=== PATIENT | male | born 1980 | race Two or more races ===

== ENCOUNTER 2018-03-22 06:04 | Emergency (ER) | payer BC, MEDICAID ==
[~2018-03-22] VITALS: Ht 170.2 cm; Wt 65.0 kg
[2018-03-22 06:23] VITALS: BP 104/47
== END 2018-03-22 07:13 | disposition home or self-care (01) ==
LOC: ED 07:06
DX: F33.3 Major depressive disorder, recurrent, severe with psychotic symptoms (principal); Z21 Asymptomatic human immunodeficiency virus [HIV] infection status
CPT/HCPCS: 99284

== ENCOUNTER 2020-04-10 09:47 | Inpatient (IN) | payer MEDICAID, OTHER ==
[~2020-04-10] VITALS: Ht 177.8 cm; Wt 87.9 kg
[2020-04-10] MEDS ORDERED: LORazepam 2 MG/ML, 1ML ONE ×2 (09:56→11:06)
[2020-04-10] MEDS ORDERED: NALOXONE 0.4 MG/ML, 1ML ONE (09:58)
[2020-04-10] MEDS ORDERED: SODIUM CHLORIDE 0.9% 1,000 ML IV ONE (10:00)
[2020-04-10] MEDS ORDERED: NALOXONE 1 MG/ML, 2ML IVPush ONE (10:00)
[2020-04-10 10:10] LABS: MEAN CORPUSCULAR HEMOGLOBIN 30.4 pg (27.5-34.5); MEAN CORPUSCULAR HGB CONC 31.9 g/dL (33.2-36.2); MEAN PLATELET VOLUME 8.3 fL (7.4-10.4); PLATELET COUNT 326 x10^3/uL (130-400); RED CELL DISTRIBUTION WIDTH 14.9 % (9.4-14.8)
[2020-04-10 10:29] LABS: AMPHETAMINE SCREEN, URINE Negative (Negative); BARBITURATE SCREEN, URINE Negative (Negative); BENZODIAZEPINE SCREEN, URINE Negative (Negative); CANNABINOID SCREEN, URINE Positive (Negative); COCAINE SCREEN, URINE Negative (Negative); METHADONE SCREEN, URINE Negative (Negative); OPIATE SCREEN, URINE Negative (Negative)
[2020-04-10 10:33] LABS: MD YES
[2020-04-10 10:35] LABS: BAND#(MANUAL) 1.69 x10^3/uL; BANDS%(MANUAL) 6 % (0-7); EOS#(MANUAL) 0.28 x10^3/uL (0.0-0.4); EOS% (MANUAL) 1 % (1-7); LYMPH#(MANUAL) 2.54 x10^3/uL (1-3.4); LYMPHS% (MANUAL) 9 % (22-44); MONOS#(MANUAL) 2.54 x10^3/uL (0.3-2.7); MONOS% (MANUAL) 9 % (2-9); SEG#(MANUAL) 21.15 x10^3/uL (1.8-6.8); SEGS% (MANUAL) 75 % (42-75)
[2020-04-10 10:36] LABS: <PLATELET ESTIMATE> ADEQUATE; <PLT MORPHOLOGY> NORMAL PLT MORPH; <RBC MORPHOLOGY> NORMAL
[2020-04-10 10:59] LABS: ALBUMIN 4.6 g/dL (3.4-5.0); CALCIUM 9.7 mg/dL (8.5-10.1); CHLORIDE 118 mmol/L (98-107); SALICYLATE LEVEL 4.5 mg/dL (2.8-20.0)
[2020-04-10] MEDS ORDERED: SODIUM BICARBONATE 8.4% 150 MEQ in DEXTROSE 5% 1,000 ML IV ONE (10:59)
[2020-04-10] MEDS ORDERED: FOMEPIZOLE 1.5 GM/1.5 ML IVPush ONE (11:00)
[2020-04-10] MEDS ORDERED: FOMEPIZOLE IV ONE ×2 (11:00)
[2020-04-10] MEDS ORDERED: SODIUM CHLORIDE 0.9% IV ONE ×2 (11:00)
[2020-04-10] MEDS ORDERED: LORazepam 2 MG/ML, 1ML IVPush ONE ×2 (11:00→17:30)
[2020-04-10 11:03] LABS: ALANINE AMINOTRANSFERASE 42 U/L (12-78); ALKALINE PHOSPHATASE 115 U/L (45-117); BILIRUBIN,TOTAL 0.2 mg/dL (0.2-1.0); CREATININE 1.94 mg/dL (0.7-1.3); TOTAL PROTEIN 9.8 g/dL (6.4-8.2)
[2020-04-10 11:12] LABS: ANION GAP 22 mmol/L (5-15)
[2020-04-10] MEDS ORDERED: ETOMIDATE 20 MG/10 ML IVPush ONE (11:30)
[2020-04-10] MEDS: PROPOFOL 100 ML IV PRN ×4 (12:16→23:44)
[2020-04-10] MEDS ORDERED: VECURONIUM 10 MG IVPush ONE (12:30)
[2020-04-10 13:18] LABS: MICROSCOPIC AUTO
--- NOTE | 2020-04-10 13:22 | NUR ---
SISTER SPEAKS [place] AND CAN KEEP FAMILY UPDATED. EVELYN (GOES BY "Nati") [phone]
--- NOTE | 2020-04-10 13:23 | NUR ---
LATE ENTRY FOR ARRIVAL 0945 BIB EMS FROM HOME. PER EMS RPT PTS MOTHER STATES THAT PT WAS NORMAL LAST NIGHT. SHE WAS UNABLE TO ARROUSE HIM THIS AM AND CALLED 911. PT PRESENTS SKIN COOL, CLAMMY, GOOSE BUMPS, RESP RATE 48 WITH SP02 99% ON RA, FSBS = 11 [employer] AND WAS REPEATED HERE FSBS = 121. HR ST AND BP STABLE. DR LIANG AT BEDSIDE, PT RESPONDS TO PAINFUL STIMULI WITH PURPOSE BUT NOT FOLLOWING COMMANDS. PIV EST AND LABS DRAWN, GASCA CATH INSERTED TO OBTAIN SAMPLE FOR DOA. PT HAS HX OF DRUG ABUSE AND IS HIV +. NARCAN GIVEN WITH NO EFFECT. WHEN GASCA CATH WAS INSERTED PT SAT UPRIGHT AND GRABBED FOR THE GASCA, IT TOOK 4 PEOPLE TO HOLD HIM BACK DOWN. PT HAD EYES OPEN BUT DID NOT SEEM TO BE FOCUSING ON ANYONE. ANY QUESTION THAT WAS ASKED WAS ANSWERED "METHAMPHETAMINE" PT WAS GIVEN 2MG ATIVAN WITH EFFECT AND TAKEN TO CT.
[2020-04-10 14:35] LABS: CHLORIDE,URINE RANDOM 68 mmol/L; POTASSIUM,URINE RANDOM 68 mmol/L; SODIUM,URINE RANDOM 65 mmol/L
[2020-04-10 14:43] LABS: MICROSCOPIC INDICATED
[2020-04-10] MEDS ORDERED: ONDANSETRON 2MG/ML, 2ML ONE (15:23)
[2020-04-10] MEDS ORDERED: LACTULOSE 20 GM/30 ML UDC NG PRN (16:30)
[2020-04-10] MEDS ORDERED: PROPOFOL 100 ML IV PRN (16:30)
[2020-04-10] MEDS ORDERED: SENNA/DOCUSATE TABLET NG PRN (16:30)
[2020-04-10] MEDS ORDERED: DEXTROSE 4 GM TAB.CHEW PO PRN (16:30)
[2020-04-10] MEDS ORDERED: PHARMACY MAY ADJ FOR RENAL FX MC SCH (16:30)
[2020-04-10] MEDS ORDERED: GLUCAGON 1 MG IM PRN (16:30)
[2020-04-10] MEDS ORDERED: DEXTROSE 50%, 50ML SYRINGE IVPush PRN (16:30)
--- NOTE | 2020-04-10 17:21 | NUR ---
LATE ENTRY FOR 1020, PT SISTER AND MOTHER AT BEDSIDE. PT SISTEREVELYN SPEAKS FRENCH AND IS PROVIDING TRANSLATION. PT ASSESSMENT POC DISCUSSED AND QUESTIONS ANSWERED.
--- NOTE | 2020-04-10 17:22 | NUR ---
LATE ENTRY FOR 1300, PT TRANS TO ICU. FAMILY UPDATED ON POC AND QUESTIONS ANSWERED. VISITING RESTRICTIONS DUE TO COVID UNIT DISCUSSED AND FAMILY VERBALIZES UNDERSTANDING.
[2020-04-10] MEDS: HEPARIN 5,000 UNITS/ML, 1ML SQ SCH (21:00)
[2020-04-10] MEDS: SODIUM CHLORIDE FLUSH 10ML SYR IVF SCH (21:00)
[2020-04-10 22:36] LABS: MEAN CORPUSCULAR HEMOGLOBIN 30.1 pg (27.5-34.5); MEAN CORPUSCULAR HGB CONC 33.2 g/dL (33.2-36.2); MEAN PLATELET VOLUME 8.6 fL (7.4-10.4); PLATELET COUNT 214 x10^3/uL (130-400); RED BLOOD COUNT 5.19 x10^6/uL (4.38-5.82); RED CELL DISTRIBUTION WIDTH 13.6 % (9.4-14.8)
[2020-04-10 22:40] LABS: ANION GAP 8 mmol/L (5-15); CALCIUM 8.5 mg/dL (8.5-10.1); CHLORIDE 99 mmol/L (98-107)
[2020-04-10] MEDS: SODIUM CHLORIDE 0.9% IV SCH (23:06)
[2020-04-10] MEDS: FOMEPIZOLE IV SCH (23:06)
[2020-04-10 23:35] LABS: MD YES
[2020-04-10 23:38] LABS: BAND#(MANUAL) 1.29 x10^3/uL; BANDS%(MANUAL) 5 % (0-7); LYMPH#(MANUAL) 1.03 x10^3/uL (1-3.4); LYMPHS% (MANUAL) 4 % (22-44); MONOS% (MANUAL) 7 % (2-9); REACTIVE LYMPHS # (MANUAL) 0.26 x10^3/uL (0-0); REACTIVE LYMPHS % (MANUAL) 1 % (0-0); SEG#(MANUAL) 21.33 x10^3/uL (1.8-6.8); SEGS% (MANUAL) 83 % (42-75)
[2020-04-10 23:39] LABS: <PLATELET ESTIMATE> ADEQUATE; <PLT MORPHOLOGY> NORMAL PLT MORPH; <RBC MORPHOLOGY> NORMAL
[2020-04-11 03:33] LABS: ANION GAP 8 mmol/L (5-15); CALCIUM 8.6 mg/dL (8.5-10.1); CHLORIDE 97 mmol/L (98-107); CREATININE 3.09 mg/dL (0.7-1.3)
[2020-04-11] MEDS: PROPOFOL 100 ML IV PRN (03:38)
[2020-04-11 04:00] VITALS: BP 113/67
[2020-04-11 04:58] LABS: BASOPHILS % (AUTO) 1 % (0-1); EOSINOPHILS % (AUTO) 0 % (1-7); LYMPHOCYTES % (AUTO) 5 % (22-44); MEAN CORPUSCULAR HEMOGLOBIN 30.3 pg (27.5-34.5); MEAN CORPUSCULAR HGB CONC 33.7 g/dL (33.2-36.2); MEAN PLATELET VOLUME 8.2 fL (7.4-10.4); MONOCYTES % (AUTO) 10 % (2-9); NEUTROPHILS % (AUTO) 85 % (42-75); PLATELET COUNT 190 x10^3/uL (130-400); RED BLOOD COUNT 5.04 x10^6/uL (4.38-5.82); RED CELL DISTRIBUTION WIDTH 13.5 % (9.4-14.8)
[2020-04-11] MEDS: HEPARIN 5,000 UNITS/ML, 1ML SQ SCH ×3 (05:30→21:00)
[2020-04-11 05:42] LABS: ALBUMIN 3.4 g/dL (3.4-5.0); BILIRUBIN, DIRECT 0.2 mg/dL (0.1-0.2)
[2020-04-11 05:45] LABS: BILIRUBIN,INDIRECT 0.4 mg/dL (0.0-2.0); BILIRUBIN,TOTAL 0.6 mg/dL (0.2-1.0); TOTAL PROTEIN 7.6 g/dL (6.4-8.2)
[2020-04-11 05:50] LABS: MD SCAN
[2020-04-11] MEDS: PANTOPRAZOLE 40 MG IV IV SCH (10:12)
[2020-04-11] MEDS: LORazepam 2 MG/ML, 1ML IVPush PRN (10:12)
[2020-04-11] MEDS: SODIUM CHLORIDE FLUSH 10ML SYR IVF SCH ×2 (10:13→21:00)
[2020-04-11] MEDS ORDERED: DEXMEDETOMIDINE 400 MCG in SODIUM CHLORIDE 0.9% 96 ML IV PRN ×2 (10:30→14:30)
[2020-04-11] MEDS: FOMEPIZOLE IV SCH (11:55)
[2020-04-11] MEDS: SODIUM CHLORIDE 0.9% IV SCH (11:55)
[2020-04-11] MEDS ORDERED: SUCCINYLCHOLINE 20 MG/ML, 10ML ONE (14:00)
[2020-04-11] MEDS ORDERED: PROPOFOL 10 MG/ML, 100ML IV ONE (14:00)
[2020-04-11] MEDS ORDERED: ETOMIDATE 40 MG/20 ML ONE (14:00)
[2020-04-11] MEDS ORDERED: VECURONIUM 10 MG ONE (14:00)
[2020-04-12] MEDS ORDERED: SODIUM CHLORIDE 0.9% 1,000ML IVBOLUS ONE
[2020-04-12] MEDS: FOMEPIZOLE IV SCH ×2 (00:39→13:24)
[2020-04-12] MEDS: SODIUM CHLORIDE 0.9% IV SCH ×2 (00:39→13:24)
[2020-04-12] MEDS ORDERED: NOREPINEPHRINE 8 MG in SODIUM CHLORIDE 0.9% 242 ML IV PRN (02:30)
[2020-04-12 03:49] LABS: BASOPHILS % (AUTO) 0 % (0-1); EOSINOPHILS % (AUTO) 0 % (1-7); LYMPHOCYTES % (AUTO) 12 % (22-44); MEAN CORPUSCULAR HGB CONC 33.4 g/dL (33.2-36.2); MEAN PLATELET VOLUME 8.2 fL (7.4-10.4); MONOCYTES % (AUTO) 12 % (2-9); NEUTROPHILS % (AUTO) 76 % (42-75); PLATELET COUNT 154 x10^3/uL (130-400); RED BLOOD COUNT 4.53 x10^6/uL (4.38-5.82); RED CELL DISTRIBUTION WIDTH 13.8 % (9.4-14.8)
[2020-04-12 03:52] LABS: MD NO
[2020-04-12 04:00] VITALS: BP 114/57
[2020-04-12 04:01] LABS: ANION GAP 7 mmol/L (5-15); CALCIUM 8.7 mg/dL (8.5-10.1); CHLORIDE 102 mmol/L (98-107); CREATININE 3.83 mg/dL (0.7-1.3)
[2020-04-12] MEDS: HEPARIN 5,000 UNITS/ML, 1ML SQ SCH ×3 (06:25→19:41)
[2020-04-12] MEDS: PANTOPRAZOLE 40 MG IV IV SCH (08:32)
[2020-04-12] MEDS: SODIUM CHLORIDE FLUSH 10ML SYR IVF SCH ×2 (08:32→20:01)
[2020-04-12] MEDS ORDERED: DEXMEDETOMIDINE 400 MCG in SODIUM CHLORIDE 0.9% 96 ML IV PRN (14:30)
[2020-04-12 15:14] LABS: ANA SCREEN NEGATIVE (Negative)
[2020-04-12 18:38] VITALS: BP 107/66
[2020-04-12] MEDS: PROMETHAZINE 25 MG/ML, 1ML IM PRN (19:41)
[2020-04-13 01:30] VITALS: BP 108/66
[2020-04-13 04:24] LABS: FIO2 ROOM AIR %
[2020-04-13 04:36] LABS: BASOPHILS % (AUTO) 1 % (0-1); EOSINOPHILS % (AUTO) 1 % (1-7); LYMPHOCYTES % (AUTO) 13 % (22-44); MEAN CORPUSCULAR HGB CONC 33.6 g/dL (33.2-36.2); MEAN PLATELET VOLUME 8.2 fL (7.4-10.4); MONOCYTES % (AUTO) 10 % (2-9); NEUTROPHILS % (AUTO) 76 % (42-75); PLATELET COUNT 174 x10^3/uL (130-400); RED BLOOD COUNT 4.49 x10^6/uL (4.38-5.82); RED CELL DISTRIBUTION WIDTH 13.2 % (9.4-14.8)
[2020-04-13 04:37] LABS: MD NO
[2020-04-13 04:50] LABS: ALBUMIN 2.9 g/dL (3.4-5.0); ANION GAP 11 mmol/L (5-15); CHLORIDE 100 mmol/L (98-107)
[2020-04-13 04:51] LABS: CREATININE 7.88 mg/dL (0.7-1.3); TRIGLYCERIDES 272 mg/dL (50-200)
[2020-04-13] MEDS: HEPARIN 5,000 UNITS/ML, 1ML SQ SCH ×3 (05:22→20:25)
[2020-04-13 07:32] VITALS: BP 110/66
[2020-04-13] MEDS: SODIUM CHLORIDE FLUSH 10ML SYR IVF SCH ×2 (08:45→20:25)
[2020-04-13] MEDS: PROMETHAZINE 25 MG/ML, 1ML IM PRN (08:49)
[2020-04-13 12:16] VITALS: BP 94/54
[2020-04-13 19:10] VITALS: BP 129/77
[2020-04-14 01:09] VITALS: BP 109/76
[2020-04-14 04:27] LABS: BASOPHILS % (AUTO) 1 % (0-1); EOSINOPHILS % (AUTO) 3 % (1-7); LYMPHOCYTES % (AUTO) 16 % (22-44); MEAN CORPUSCULAR HEMOGLOBIN 30.3 pg (27.5-34.5); MEAN CORPUSCULAR HGB CONC 33.9 g/dL (33.2-36.2); MEAN PLATELET VOLUME 7.9 fL (7.4-10.4); MONOCYTES % (AUTO) 10 % (2-9); NEUTROPHILS % (AUTO) 70 % (42-75); PLATELET COUNT 206 x10^3/uL (130-400); RED BLOOD COUNT 4.34 x10^6/uL (4.38-5.82); RED CELL DISTRIBUTION WIDTH 12.9 % (9.4-14.8)
[2020-04-14 04:29] LABS: ANION GAP 13 mmol/L (5-15); CALCIUM 8.6 mg/dL (8.5-10.1); CHLORIDE 97 mmol/L (98-107); MD NO
[2020-04-14] MEDS: HEPARIN 5,000 UNITS/ML, 1ML SQ SCH ×3 (05:17→21:00)
[2020-04-14 08:02] VITALS: BP 111/65
[2020-04-14] MEDS: SODIUM CHLORIDE FLUSH 10ML SYR IVF SCH ×2 (08:36→21:00)
[2020-04-14] MEDS: ACETAMINOPHEN 650 MG/20.3 ML UDC PO PRN (08:56)
[2020-04-14 12:57] VITALS: BP 129/83
[2020-04-14 19:12] VITALS: BP 124/74
[2020-04-15 01:01] VITALS: BP 112/68
[2020-04-15] MEDS: HEPARIN 5,000 UNITS/ML, 1ML SQ SCH ×3 (05:09→21:20)
[2020-04-15 05:51] LABS: BASOPHILS % (AUTO) 1 % (0-1); EOSINOPHILS % (AUTO) 5 % (1-7); LYMPHOCYTES % (AUTO) 20 % (22-44); MEAN CORPUSCULAR HEMOGLOBIN 30.6 pg (27.5-34.5); MEAN CORPUSCULAR HGB CONC 34.1 g/dL (33.2-36.2); MEAN PLATELET VOLUME 7.9 fL (7.4-10.4); MONOCYTES % (AUTO) 15 % (2-9); NEUTROPHILS % (AUTO) 60 % (42-75); PLATELET COUNT 204 x10^3/uL (130-400); RED CELL DISTRIBUTION WIDTH 12.7 % (9.4-14.8)
[2020-04-15 05:54] LABS: MD NO
[2020-04-15 05:55] LABS: ANION GAP 9 mmol/L (5-15); CALCIUM 8.7 mg/dL (8.5-10.1); CHLORIDE 96 mmol/L (98-107); CREATININE 8.72 mg/dL (0.7-1.3)
[2020-04-15 07:28] VITALS: BP 103/62
[2020-04-15] MEDS: SODIUM CHLORIDE FLUSH 10ML SYR IVF SCH ×2 (11:21→21:20)
[2020-04-15] MEDS: ACETAMINOPHEN 650 MG/20.3 ML UDC PO PRN ×2 (11:21→21:20)
[2020-04-15 13:32] VITALS: BP 144/79
[2020-04-15 19:04] VITALS: BP 116/72
[2020-04-15] MEDS ORDERED: MELATONIN 5 MG TABLET PO ONE (23:00)
[2020-04-16 01:24] VITALS: BP 110/68
[2020-04-16] MEDS: HEPARIN 5,000 UNITS/ML, 1ML SQ SCH ×3 (05:17→20:44)
[2020-04-16] MEDS: ACETAMINOPHEN 650 MG/20.3 ML UDC PO PRN (05:26)
[2020-04-16 07:24] VITALS: BP 130/82
[2020-04-16] MEDS: SODIUM CHLORIDE FLUSH 10ML SYR IVF SCH ×2 (08:52→20:44)
[2020-04-16 10:17] LABS: BASOPHILS % (AUTO) 1 % (0-1); EOSINOPHILS % (AUTO) 6 % (1-7); LYMPHOCYTES % (AUTO) 13 % (22-44); MEAN CORPUSCULAR HGB CONC 33.6 g/dL (33.2-36.2); MONOCYTES % (AUTO) 13 % (2-9); NEUTROPHILS % (AUTO) 68 % (42-75); PLATELET COUNT 202 x10^3/uL (130-400); RED BLOOD COUNT 4.38 x10^6/uL (4.38-5.82); RED CELL DISTRIBUTION WIDTH 12.9 % (9.4-14.8)
[2020-04-16 10:21] LABS: MD NO
[2020-04-16 10:30] LABS: ANION GAP 11 mmol/L (5-15); CALCIUM 8.7 mg/dL (8.5-10.1); CHLORIDE 93 mmol/L (98-107); TRIGLYCERIDES 269 mg/dL (50-200)
[2020-04-16 14:20] VITALS: BP 136/79
[2020-04-16 19:13] VITALS: BP 130/78
[2020-04-16] MEDS: LORazepam 2 MG/ML, 1ML IVPush PRN (20:44)
[2020-04-17 01:16] VITALS: BP 119/80
[2020-04-17] MEDS: HEPARIN 5,000 UNITS/ML, 1ML SQ SCH ×3 (03:41→20:19)
[2020-04-17 05:57] LABS: BASOPHILS % (AUTO) 1 % (0-1); EOSINOPHILS % (AUTO) 7 % (1-7); LYMPHOCYTES % (AUTO) 16 % (22-44); MEAN CORPUSCULAR HEMOGLOBIN 30.3 pg (27.5-34.5); MEAN CORPUSCULAR HGB CONC 33.7 g/dL (33.2-36.2); MEAN PLATELET VOLUME 7.6 fL (7.4-10.4); MONOCYTES % (AUTO) 14 % (2-9); NEUTROPHILS % (AUTO) 62 % (42-75); PLATELET COUNT 192 x10^3/uL (130-400); RED BLOOD COUNT 4.32 x10^6/uL (4.38-5.82); RED CELL DISTRIBUTION WIDTH 12.9 % (9.4-14.8)
[2020-04-17 06:09] LABS: ANION GAP 9 mmol/L (5-15); CHLORIDE 96 mmol/L (98-107); CREATININE 8.92 mg/dL (0.7-1.3)
[2020-04-17 06:25] LABS: MD NO
[2020-04-17 06:55] VITALS: BP 116/76
[2020-04-17 09:46] LABS: ANION GAP 8 mmol/L (5-15); CALCIUM 9.3 mg/dL (8.5-10.1); CHLORIDE 97 mmol/L (98-107); CREATININE 9.21 mg/dL (0.7-1.3)
[2020-04-17] MEDS: SODIUM CHLORIDE FLUSH 10ML SYR IVF SCH ×2 (09:50→20:19)
[2020-04-17] MEDS ORDERED: LIDOCAINE 1%, 20ML ONE (10:29)
[2020-04-17] MEDS ORDERED: LIDOCAINE 1%, 10ML ONE (10:29)
[2020-04-17] MEDS ORDERED: FENTANYL PF 100 MCG/2ML ONE (10:37)
[2020-04-17] MEDS ORDERED: NALOXONE 1 MG/ML, 2ML ONE (10:38)
[2020-04-17] MEDS ORDERED: MIDAZOLAM 1 MG/ML, 5ML ONE (10:38)
[2020-04-17] MEDS ORDERED: CEFAZOLIN PMX 1GM/50ML 50 ML ONE (10:38)
[2020-04-17] MEDS ORDERED: FLUMAZENIL 0.1 MG/1 ML, 5ML ONE (10:38)
[2020-04-17 12:22] VITALS: BP 127/78
[2020-04-17] MEDS: ACETAMINOPHEN 650 MG/20.3 ML UDC PO PRN ×2 (16:03→22:26)
[2020-04-17 18:54] VITALS: BP 111/65
[2020-04-17] MEDS: LORazepam 2 MG/ML, 1ML IVPush PRN (22:26)
[2020-04-18 01:40] VITALS: BP 115/74
[2020-04-18 05:22] LABS: BASOPHILS % (AUTO) 0 % (0-1); EOSINOPHILS % (AUTO) 6 % (1-7); LYMPHOCYTES % (AUTO) 13 % (22-44); MEAN CORPUSCULAR HEMOGLOBIN 30.4 pg (27.5-34.5); MEAN CORPUSCULAR HGB CONC 33.7 g/dL (33.2-36.2); MEAN PLATELET VOLUME 7.3 fL (7.4-10.4); MONOCYTES % (AUTO) 13 % (2-9); NEUTROPHILS % (AUTO) 68 % (42-75); PLATELET COUNT 220 x10^3/uL (130-400); RED BLOOD COUNT 4.29 x10^6/uL (4.38-5.82); RED CELL DISTRIBUTION WIDTH 12.7 % (9.4-14.8)
[2020-04-18 05:28] LABS: ANION GAP 8 mmol/L (5-15); CALCIUM 8.8 mg/dL (8.5-10.1); CHLORIDE 99 mmol/L (98-107); MD NO
[2020-04-18] MEDS: HEPARIN 5,000 UNITS/ML, 1ML SQ SCH ×2 (05:51→13:56)
[2020-04-18 07:03] VITALS: BP 106/69
[2020-04-18] MEDS: SODIUM CHLORIDE FLUSH 10ML SYR IVF SCH (09:00)
[2020-04-18] MEDS: ACETAMINOPHEN 650 MG/20.3 ML UDC PO PRN (09:59)
[2020-04-18 12:22] VITALS: BP 116/72
[2020-04-18 18:37] VITALS: BP 122/79
== END 2020-04-18 20:04 | DRG 917 ==
LOC: ED 11:32 → EDIP 11:33 → ED 11:43 → ICU 12:54 → 4WST 04-12 18:25
PROVIDERS: ADMIT Internal Medicine; ATTEND Internal Medicine
PROC: 5A1935Z Respiratory Ventilation, Less than 24 Consecutive Hours (ICD-10-PCS; principal; 2020-04-10)
PROC: 0BH17EZ Insertion of Endotracheal Airway into Trachea, Via Natural or Artificial Opening (ICD-10-PCS; 2020-04-10)
PROC: 0T9B70Z Drainage of Bladder with Drainage Device, Via Natural or Artificial Opening (ICD-10-PCS; 2020-04-10)
PROC: 02HV33Z Insertion of Infusion Device into Superior Vena Cava, Percutaneous Approach (ICD-10-PCS; 2020-04-10)
PROC: B548ZZA Ultrasonography of Superior Vena Cava, Guidance (ICD-10-PCS; 2020-04-10)
PROC: 0JH63XZ Insertion of Tunneled Vascular Access Device into Chest Subcutaneous Tissue and Fascia, Percutaneous Approach (ICD-10-PCS; 2020-04-17)
PROC: 02HV33Z Insertion of Infusion Device into Superior Vena Cava, Percutaneous Approach (ICD-10-PCS; 2020-04-17)
PROC: B5181ZA Fluoroscopy of Superior Vena Cava using Low Osmolar Contrast, Guidance (ICD-10-PCS; 2020-04-17)
PROC: B548ZZA Ultrasonography of Superior Vena Cava, Guidance (ICD-10-PCS; 2020-04-17)
DX: T52.8X2A Toxic effect of other organic solvents, intentional self-harm, initial encounter (principal); G92 Toxic encephalopathy; J96.00 Acute respiratory failure, unspecified whether with hypoxia or hypercapnia; N17.0 Acute kidney failure with tubular necrosis; E87.2 Acidosis; F33.2 Major depressive disorder, recurrent severe without psychotic features; R65.10 Systemic inflammatory response syndrome (SIRS) of non-infectious origin without acute organ dysfunction; Z99.11 Dependence on respirator [ventilator] status; D72.829 Elevated white blood cell count, unspecified; D75.1 Secondary polycythemia; E87.5 Hyperkalemia; E87.6 Hypokalemia; F12.10 Cannabis abuse, uncomplicated; F17.210 Nicotine dependence, cigarettes, uncomplicated; F19.129 Other psychoactive substance abuse with intoxication, unspecified; I10 Essential (primary) hypertension; I49.3 Ventricular premature depolarization; R31.29 Other microscopic hematuria; Z20.828 Contact with and (suspected) exposure to other viral communicable diseases; Z21 Asymptomatic human immunodeficiency virus [HIV] infection status; F15.90 Other stimulant use, unspecified, uncomplicated; R00.0 Tachycardia, unspecified; Y92.89 Other specified places as the place of occurrence of the external cause; Z99.2 Dependence on renal dialysis
CPT/HCPCS: 36415; 36600; 74018; 96374; 96375; 96376; 99291; 99292; J3490; 36556; 36558; 36565; 70450; 70551; 71045; 76770; 76937; 80048; 80053; 80069; 80076; 80307; 81001; 82140; 82436; 82693; 82803; 82962; 83520; 83605; 83735; 83930; 84100; 84133; 84300; 84478; 85025; 86038; 86160; 86162; 86225; 86256; 86361; 86480; 86705; 86706; 87040; 87070; 87081; 87205; 87340; 87635; 90935; 93005; 94002; 94003; 99156; 99157; C1894; G0378; J0690; J1644; J2250; J2550; J2704; J3010; J7070; C1750; C1751; C9113; J0330; J1451; J1642; J2060; J2310; J7030

== ENCOUNTER 2020-04-18 15:27 | Inpatient (IN) | payer MEDICAID ==
[~2020-04-18] VITALS: Ht 172.7 cm; Wt 75.5 kg
[2020-04-18] MEDS ORDERED: ONDANSETRON ODT 4 MG PO PRN (15:30)
[2020-04-18] MEDS ORDERED: DOCUSATE 100 MG CAPSULE PO PRN (15:30)
[2020-04-18] MEDS ORDERED: BISACODYL 10 MG SUPP PR PRN (15:30)
[2020-04-18] MEDS ORDERED: POLYETHYLENE GLYCOL 17 GM PACKET PO PRN (15:30)
[2020-04-18 20:34] VITALS: BP 122/80
[2020-04-18] MEDS ORDERED: PLEASE ENTER HEIGHT AND WEIGHT MC SCH (21:30)
[2020-04-18 21:40] VITALS: BP 122/80
[2020-04-18] MEDS ORDERED: TRAZODONE 50MG TABLET ONE (21:51)
[2020-04-18] MEDS ORDERED: ACETAMINOPHEN 325 MG TABLET ONE (21:52)
[2020-04-18] MEDS: ACETAMINOPHEN 325 MG TABLET PO PRN (21:55)
[2020-04-18] MEDS: TRAZODONE 50MG TABLET PO PRN (21:56)
[2020-04-19 06:06] LABS: CHOL/HDL RATIO 5.6
[2020-04-19 06:07] LABS: FREE T4 (FREE THYROXINE) 1.04 ng/dL (0.76-1.46); LDL/HDL RATIO 3.1 (0.5-3.0)
[2020-04-19 07:22] VITALS: BP 109/69
[2020-04-19 07:31] LABS: BASOPHILS % (AUTO) 1 % (0-1); EOSINOPHILS % (AUTO) 6 % (1-7); LYMPHOCYTES % (AUTO) 17 % (22-44); MEAN CORPUSCULAR HEMOGLOBIN 30.6 pg (27.5-34.5); MEAN CORPUSCULAR HGB CONC 33.5 g/dL (33.2-36.2); MEAN PLATELET VOLUME 7.6 fL (7.4-10.4); MONOCYTES % (AUTO) 14 % (2-9); NEUTROPHILS % (AUTO) 63 % (42-75); PLATELET COUNT 236 x10^3/uL (130-400); RED BLOOD COUNT 4.38 x10^6/uL (4.38-5.82); RED CELL DISTRIBUTION WIDTH 12.7 % (9.4-14.8)
[2020-04-19 07:32] LABS: MD NO
[2020-04-19 07:38] LABS: ALANINE AMINOTRANSFERASE 28 U/L (12-78); ALBUMIN 3.2 g/dL (3.4-5.0); ANION GAP 12 mmol/L (5-15); CALCIUM 9.3 mg/dL (8.5-10.1); CHLORIDE 99 mmol/L (98-107); CREATININE 8.49 mg/dL (0.7-1.3)
[2020-04-19 07:41] LABS: ALKALINE PHOSPHATASE 81 U/L (45-117); BILIRUBIN,TOTAL 0.4 mg/dL (0.2-1.0); TOTAL PROTEIN 7.8 g/dL (6.4-8.2)
[2020-04-19] MEDS: HEPARIN 5,000 UNITS/ML, 1ML SQ SCH ×2 (08:31→16:31)
[2020-04-19] MEDS: ACETAMINOPHEN 325 MG TABLET PO PRN ×3 (08:38→21:03)
[2020-04-19 19:36] VITALS: BP 133/81
[2020-04-19] MEDS: TRAZODONE 50MG TABLET PO PRN (21:04)
[2020-04-20] MEDS: HEPARIN 5,000 UNITS/ML, 1ML SQ SCH ×4 (01:00→23:54)
[2020-04-20] MEDS: ACETAMINOPHEN 325 MG TABLET PO PRN ×3 (04:26→14:50)
[2020-04-20 07:44] VITALS: BP 120/71
[2020-04-20] MEDS ORDERED: SERT25TA3 PO (16:39)
[2020-04-20] MEDS ORDERED: ABAC1TAB14 PO (16:39)
[2020-04-20 19:03] VITALS: BP 151/62
[2020-04-20] MEDS: DIVALPROEX 500 MG TAB.ER.24H PO SCH (21:08)
[2020-04-20] MEDS: TRAZODONE 50MG TABLET PO PRN (23:54)
[2020-04-21 07:17] VITALS: BP 124/77
[2020-04-21] MEDS: HEPARIN 5,000 UNITS/ML, 1ML SQ SCH ×2 (09:08→16:29)
[2020-04-21 19:30] VITALS: BP 116/82
[2020-04-21] MEDS: DIVALPROEX 500 MG TAB.ER.24H PO SCH (21:15)
[2020-04-21] MEDS: TRAZODONE 50MG TABLET PO PRN (21:15)
[2020-04-22] MEDS: HEPARIN 5,000 UNITS/ML, 1ML SQ SCH (01:44)
[2020-04-22 07:13] VITALS: BP 132/79
[2020-04-22] MEDS: CARIPRAZINE 1.5 MG CAP PO SCH (07:43)
[2020-04-22] MEDS: ACETAMINOPHEN 325 MG TABLET PO PRN (15:14)
[2020-04-22 19:48] VITALS: BP 118/79
[2020-04-22] MEDS: TRAZODONE 50MG TABLET PO PRN (20:15)
[2020-04-22] MEDS: DIVALPROEX 500 MG TAB.ER.24H PO SCH (20:15)
[2020-04-23 07:23] VITALS: BP 115/74
[2020-04-23 10:23] LABS: BASOPHILS % (AUTO) 1 % (0-1); EOSINOPHILS % (AUTO) 5 % (1-7); LYMPHOCYTES % (AUTO) 20 % (22-44); MEAN CORPUSCULAR HEMOGLOBIN 30.7 pg (27.5-34.5); MEAN CORPUSCULAR HGB CONC 33.9 g/dL (33.2-36.2); MEAN PLATELET VOLUME 6.7 fL (7.4-10.4); MONOCYTES % (AUTO) 9 % (2-9); NEUTROPHILS % (AUTO) 66 % (42-75); PLATELET COUNT 259 x10^3/uL (130-400); RED BLOOD COUNT 4.39 x10^6/uL (4.38-5.82); RED CELL DISTRIBUTION WIDTH 12.4 % (9.4-14.8)
[2020-04-23 10:31] LABS: ALANINE AMINOTRANSFERASE 22 U/L (12-78); ALBUMIN 3.9 g/dL (3.4-5.0); ANION GAP 7 mmol/L (5-15); CALCIUM 9.1 mg/dL (8.5-10.1); CHLORIDE 100 mmol/L (98-107); CREATININE 2.43 mg/dL (0.7-1.3)
[2020-04-23 10:32] LABS: MD NO
[2020-04-23 10:33] LABS: ALKALINE PHOSPHATASE 83 U/L (45-117); BILIRUBIN,TOTAL 0.4 mg/dL (0.2-1.0); TOTAL PROTEIN 8.9 g/dL (6.4-8.2)
[2020-04-23] MEDS: CARIPRAZINE 1.5 MG CAP PO SCH ×2 (12:00→20:38)
[2020-04-23 19:06] VITALS: BP 132/89
[2020-04-23] MEDS: DIVALPROEX 500 MG TAB.ER.24H PO SCH (20:37)
[2020-04-23] MEDS: TRAZODONE 50MG TABLET PO PRN (20:41)
[2020-04-24 07:21] VITALS: BP 121/80
[2020-04-24 20:10] VITALS: BP 132/78
[2020-04-24] MEDS: DIVALPROEX 500 MG TAB.ER.24H PO SCH (20:38)
[2020-04-24] MEDS: TRAZODONE 50MG TABLET PO PRN (20:38)
[2020-04-24] MEDS: CARIPRAZINE 1.5 MG CAP PO SCH (20:39)
[2020-04-25 06:27] LABS: ALBUMIN 3.6 g/dL (3.4-5.0); ANION GAP 8 mmol/L (5-15); CALCIUM 9.7 mg/dL (8.5-10.1); CHLORIDE 101 mmol/L (98-107); CREATININE 3.31 mg/dL (0.7-1.3)
[2020-04-25 07:29] VITALS: BP 116/77
[2020-04-25 19:20] VITALS: BP 134/87
[2020-04-25] MEDS: TRAZODONE 50MG TABLET PO PRN (20:17)
[2020-04-25] MEDS: DIVALPROEX 500 MG TAB.ER.24H PO SCH (20:17)
[2020-04-25] MEDS: CARIPRAZINE 1.5 MG CAP PO SCH (20:18)
[2020-04-26 06:23] VITALS: BP 132/84
[2020-04-26 07:00] LABS: ALBUMIN 3.5 g/dL (3.4-5.0); ANION GAP 7 mmol/L (5-15); CALCIUM 8.9 mg/dL (8.5-10.1); CHLORIDE 105 mmol/L (98-107); CREATININE 2.85 mg/dL (0.7-1.3)
[2020-04-26] MEDS: ACETAMINOPHEN 325 MG TABLET PO PRN (11:14)
[2020-04-26] MEDS: DIVALPROEX 500 MG TAB.ER.24H PO SCH (19:57)
[2020-04-26] MEDS: TRAZODONE 50MG TABLET PO PRN (19:57)
[2020-04-26] MEDS: CARIPRAZINE 1.5 MG CAP PO SCH (19:57)
[2020-04-26 20:11] VITALS: BP 145/89
[2020-04-27 06:15] LABS: CHLORIDE 105 mmol/L (98-107)
[2020-04-27 06:42] LABS: ALANINE AMINOTRANSFERASE 16 U/L (12-78); ALBUMIN 3.4 g/dL (3.4-5.0); ALKALINE PHOSPHATASE 72 U/L (45-117); ANION GAP 4 mmol/L (5-15); BILIRUBIN,TOTAL 0.5 mg/dL (0.2-1.0); CREATININE 2.34 mg/dL (0.7-1.3); TOTAL PROTEIN 7.3 g/dL (6.4-8.2)
[2020-04-27 06:57] VITALS: BP 115/75
[2020-04-27] MEDS ORDERED: CARI1.5C2 PO (10:44)
[2020-04-27] MEDS ORDERED: TRAZ50TA66 PO (10:44)
[2020-04-27] MEDS ORDERED: DIVA500T4 PO (10:44)
== END 2020-04-27 11:40 | disposition home or self-care (01) | DRG 885 ==
LOC: 3E 20:06
PROVIDERS: ADMIT Psychiatry & Neurology Psychosomatic Medicine; ATTEND Psychiatry & Neurology Psychosomatic Medicine
PROC: 5A1D70Z Performance of Urinary Filtration, Intermittent, Less than 6 Hours Per Day (ICD-10-PCS; 2020-04-20)
PROC: 5A1D70Z Performance of Urinary Filtration, Intermittent, Less than 6 Hours Per Day (ICD-10-PCS; principal; 2020-04-23)
DX: F33.2 Major depressive disorder, recurrent severe without psychotic features (principal); N17.9 Acute kidney failure, unspecified; R45.851 Suicidal ideations; E87.2 Acidosis; F15.21 Other stimulant dependence, in remission; Z20.828 Contact with and (suspected) exposure to other viral communicable diseases; R31.29 Other microscopic hematuria; F14.21 Cocaine dependence, in remission; E87.5 Hyperkalemia; Z99.2 Dependence on renal dialysis; Z91.5 Personal history of self-harm; Z79.899 Other long term (current) drug therapy
CPT/HCPCS: 36415; 36589; 77001; 80053; 80061; 80069; 82607; 84100; 84439; 84443; 85025; 90935; J1644